=== PATIENT | female | born 1930 | race Caucasian/White ===

== ENCOUNTER → 2017-02-17 | Outpatient (CLI) | payer MEDICARE, BC ==
[~2017-02-17] VITALS: Ht 157.5 cm; Wt 83.2 kg
[~2017-02-17] MED LIST: ALBUTEROL2.5 MG/0.5 INH; ASPIR 8181 MG; COUMADIN 5 MG TA5 M1; COZAAR 50 MG TA50 M2 PO; DEXILANT60 MG; FENOFIBRATE160 MG; IBUPROFEN 200200 M1 PO; K-DUR 20 MEQ T20 MEQ; KEFLEX500 M1 PO; PERFOROMIS20 MCG/2 M INH; PROTONIX40 M1 PO; TORSEMIDE20 MG; TORSEMIDE20 MG PO; ULTRAM 50MG TAB50 MG; VIT D 2000; VITAMIN D1000 UNI1 PO; VITAMINC500 PO; XANAX 0.5 MG0.5 MG PO
[2017-02-17 11:55] VITALS: BP 143/65
[2017-02-17 12:15] VITALS: BP 147/65
--- NOTE | 2017-02-17 15:55 | 2DMMODE ---
[place] [address] 2 D/M-MODE ECHOCARDIOGRAM Name: MERARY MARQUEZ Room: [facility]#: [id number] Admission: 02/17/17 Attend Phys: Bello Morris, Discharge: Date of : 30 Date of Service: 02/17/17 1555 Report #: [id number] THIS REPORT FOR: //name// APPROVED REPORT Study performed: 02/17/2017 08:40:00 EXAM: Comprehensive 2D, Doppler, and color-flow Echocardiogram Patient Location: Out-Patient Status: routine BSA: 1.83 HR: 73 bpm BP: 151/76 mmHg Other Information Study Quality: Good Indications Congestive Heart Failure Pacemaker Cardiomyopathy 2D Dimensions LVEF(%): 71.03 (>50%) IVSd: 11.21 (7-11mm) LVOT Diam: 20.96 (18-24mm) LVDd: 50.41 mm PWd: 10.04 (7-11mm) Ascending Ao: 35.13 (22-36mm) LVDs: 29.97 (25-40mm) Aortic Root: 33.63 mm Daugherty's LVEF: 71.03 % Volumes Left Atrial Volume (Systole) LA ESV Index: 45.30 mL/m2 Aortic Valve AoV Peak Nitin.: 1.59 m/s AO Peak Gr.: 10.10 mmHg LVOT Max P.66 mmHg AO Mean Gr.: 6.07 mmHg LVOT Mean P.91 mmHg LVOT Max V: 0.64 m/s AO V2 VTI: 30.85 cm LVOT Mean V: 0.44 m/s CARYN (VTI): 1.42 cm2 LVOT V1 VTI: 12.67 [place] [address] 2 D/M-MODE ECHOCARDIOGRAM Name: MERARY MARQUEZ Room: [facility]#: [id number] Admission: 02/17/17 Attend Phys: Bello Morris, Discharge: Date of : 30 Date of Service: 02/17/17 1555 Report #: [id number] MV Decel. Time: 164.46 ms MV PHT: 47.69 ms MVA (PHT): 4.61 cm2 TDI Medial E' Nitin.: 0.09 m/s Lateral E' Nitin.: 0.06 m/s Pulmonary Valve PV Peak Nitin.: 0.81 m/s PV Peak Gr.: 2.62 mmHg Tricuspid Valve TR Peak Gr.: 34.80 mmHg RVSP: 39.00 mmHg Left Ventricle The left ventricle is normal size. There is normal LV segmental wall motion. There is normal left ventricular wall thickness. Left ventricular systolic function is normal. LVEF is 55-60%. This study is not technically sufficient to allow evaluation of the LV diastolic function due to atrial fibrillation. Right Ventricle The right ventricle is normal size. The right ventricular systolic function is normal. Pacemaker lead is present in the right ventricle. Atria Left atrium is moderately dilated. The right atrium size is normal. Aortic Valve Mild aortic valve sclerosis. Mild aortic regurgitation. Mild aortic stenosis. Mitral Valve There is mitral annular calcification. Trace mitral regurgitation. No evidence of mitral valve stenosis. Tricuspid Valve The tricuspid valve is normal in structure. Mild tricuspid regurgitation. The RVSP is 35-40 mmHg. Pulmonic Valve The pulmonary valve is normal in structure. Trace pulmonic regurgitation[place] [address] 2 D/M-MODE ECHOCARDIOGRAM Name: ALMAMERARY Danny Room: [facility]#: [id number] Admission: 02/17/17 Attend Phys: Bello Morris, Discharge: Date of : 30 Date of Service: 02/17/17 1555 Report #: [id number] The aortic root is normal in size. IVC is normal in size and collapses with >50% inspiration Pericardium There is no pericardial effusion. <Conclusion> The left ventricle is normal size. There is normal left ventricular wall thickness. Left ventricular systolic function is normal. LVEF is 55-60%. Left atrium is moderately dilated. Mild aortic valve sclerosis. Mild aortic stenosis. There is mitral annular calcification. Trace mitral regurgitation. Mild tricuspid regurgitation. The RVSP is 35-40 mmHg. <ELECTRONICALLY SIGNED> By: Bello Morris MD, FACC 02/17/17 1555 1555 1555 Bello Morris MD, FACC /INF
[2017-02-17 16:21] LABS: ABSOLUTE BASOPHILS 0.1 thou/uL (0.0-0.2); ABSOLUTE EOSINOPHILS 0.2 thou/uL (0.0-0.7); ABSOLUTE LYMPHOCYTES 1.8 thou/uL (0.8-5.3); ABSOLUTE MONOCYTES 0.4 thou/uL (0.0-1.2); ABSOLUTE NEUTROPHILS 4.2 thou/uL (1.6-8.1); BASOPHILS 1.1 %; EOSINOPHILS 2.5 %; HEMATOCRIT 44.6 % (37.0-47.0); HEMOGLOBIN 14.4 gm/dL (12.0-15.0); LYMPHOCYTES 27.1 %; MCH 29.8 pg (26.0-34.0); MCHC 32.2 g/dL (28.0-37.0); MCV 92.8 fL (80.0-100.0); MONOCYTES 6.5 %; NUCLEATED RBCS 0 /100WBC; PLATELET COUNT* 170 thou/uL (150-400); POLYS 62.8 %; RBC 4.81 mil/uL (4.20-5.00); RDW-CV 16.5 % (10.5-14.5); WBC 6.7 thou/uL (4.0-11.0)
[2017-02-17 16:31] LABS: CALCIUM 9.2 mg/dL (8.5-10.1); CREATININE 1.7 mg/dL (0.6-1.3); POTASSIUM 3.9 mmol/L (3.5-5.1)
[2017-02-17 16:32] LABS: APTT 26.6 Seconds (25.0-31.3); INR 1.1; PROTIME 10.5 Seconds (9.20-11.50)
[2017-02-17 16:35] LABS: TOTAL BILIRUBIN 0.7 mg/dL (<0.1-1.0); TOTAL PROTEIN 7.4 g/dL (6.4-8.2)
--- NOTE | 2017-02-27 12:57 | CARD ---
[address] [address] CARDIAC CATH REPORT Name: MARQUEZMERARY Room: [facility]#: [id number] Admission: 02/17/17 Attend Phys: Bello Morris MD Discharge: Date of : 30 Report #: [id number] THIS REPORT FOR: //name// APPROVED REPORT Patient Status: Out-Patient Room #: Exam: Generator Change for a Bi-Ventricular ICD Indications: Complete Heart Block The patient is a 86 year-old female with a history of Generator at [facility]. 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 The patient was brought to the cardiac catheterization lab and the left chest and shoulder were prepped and draped in the usual fashion. During this case, Fluoroscopy and visipaque 10cc were used for imaging. After an initial incision was made. The existing pulse generator was explanted using electrocautery and blunt dissection. The RV, LV, atrial and defibrillator leads were checked and deemed to be satisfactory. The new biventricular ICD generator was attached to the RV, LV, RA and defibrillator leads. 3 done the leads and generator were replaced back within the pocket. The skin incision was then closed with a single subcuticular stitch of 4-0 Vicryl. Several Steri-Strips were placed across the incision and a sterile Telfa dressing covered in a Tegaderm. Complications The patient tolerated the procedure well and there were no complications associated with the procedure. Findings Estimated Blood Loss: none Conclusion 1. Biventricular ICD [place] [address] CARDIAC CATH REPORT Name: MERARY MARQUEZ Room: [facility]#: [id number] Admission: 02/17/17 Attend Phys: Bello Morris MD Discharge: Date of : 30 Report #: [id number] 2. Successful biventricular ICD generator change as outlined above. Recommendations 1. Follow-up site check in the office in one week. 2. Follow ICD interrogation per schedule. <ELECTRONICALLY SIGNED> By: Bello Morris MD, FACC 02/27/17 1257 [id number] hospital[facility] Morris MD, FACC /INF
--- NOTE | 2017-02-28 09:08 | H ---
[place] [address] HISTORY AND PHYSICAL Name: MERARY MARQUEZ Room: [facility]#: [id number] Admission: 02/17/17 Attend Phys: Bello Morris MD Discharge: Date of : 30 Report #: [id number] THIS REPORT FOR: //name// CC: Adonay Padgett DO Cipriano Jones MD [facility] Bello Morris INDICATION FOR ADMISSION: Biventricular ICD generator change. HISTORY OF PRESENT ILLNESS: The patient is a very pleasant 86-year-old female with history of nonischemic cardiomyopathy. She is status post AICD placement for primary prevention. Her AICD generator is at elective replacement. At this time, she is without cardiac complaint. PAST MEDICAL HISTORY: 1. Paroxysmal atrial fibrillation. 2. Chronic renal insufficiency. 3. Chronic subdural hematemesis. 4. Coronary artery disease. 5. Diabetes mellitus. 6. History of cerebrovascular accident. 7. Hyperlipidemia. 8. Hypertension. 9. Nonischemic cardiomyopathy 10. Chronic systolic heart failure. PAST SURGICAL HISTORY: 1. Atrial fibrillation ablation. 2. Cardiac defibrillator placement. 3. Left arm fracture. FAMILY HISTORY: Noncontributory. SOCIAL HISTORY: The patient does not smoke. She does not drink alcohol. ALLERGIES: ALDACTONE, ALLOPURINOL, AMIODARONE, AMLODIPINE, CELEBREX, CIPROFLOXACIN, COREG, ____, DIGOXIN, FISH OIL, LISINOPRIL, METRONIDAZOLE, OMEPRAZOLE TRANDOLAPRIL, TRICOR. HOME MEDICATIONS: Vitamin C 1000 mg daily, aspirin 81 mg daily, erythromycin ointment nightly, Flonase nasal spray daily, losartan 25 mg daily, Naprosyn 220 mg 2 tablets b.i.d., Protonix 40 mg 2 times daily, Visine eyedrops as directed, ____, vitamin D3 2000 units daily. PHYSICAL EXAMINATION: VITAL SIGNS: Stable. Blood pressure 134/72, pulse 84 [place] [address] HISTORY AND PHYSICAL Name: MERARY MARQUEZ Room: [facility]#: [id number] Admission: 02/17/17 Attend Phys: Bello Morris MD Discharge: Date of : 30 Report #: [id number] GENERAL: This is a pleasant elderly female, in no distress. Mood and affect appropriate. HEENT: Extraocular muscles intact. Mucous membranes are moist. NECK: Shows no jugular venous distention. There are no carotid bruits. CHEST: Reveals clear lung beltran without wheezes or rales. CARDIOVASCULAR: Reveals a regular rhythm with normal S1 and S2. I do not appreciate gallop or murmur. ABDOMEN: Reveals normal bowel sounds. The abdomen is soft and nontender. EXTREMITIES: Shows no edema. Peripheral pulses palpable. SKIN: Warm and dry. IMPRESSION: 1. Biventricular ICD generator at elective replacement. 2. History of nonischemic cardiomyopathy with chronic systolic heart failure. PLAN: The patient is being admitted for elective replacement of biventricular ICD. <ELECTRONICALLY SIGNED> By: Bello Morris MD, FACC 02/28/17 0908 [id number] Morris MD, FACC /nt
== END | disposition home or self-care (01) ==
LOC: M.CL 08:15
PROVIDERS: Internal Medicine Cardiovascular Disease
DX: Z45.02 Encounter for adjustment and management of automatic implantable cardiac defibrillator (principal); I42.9 Cardiomyopathy, unspecified; I08.3 Combined rheumatic disorders of mitral, aortic and tricuspid valves; I44.2 Atrioventricular block, complete; I48.0 Paroxysmal atrial fibrillation; I13.0 Hypertensive heart and chronic kidney disease with heart failure and stage 1 through stage 4 chronic kidney disease, or unspecified chronic kidney disease; E11.22 Type 2 diabetes mellitus with diabetic chronic kidney disease; N18.9 Chronic kidney disease, unspecified; I50.22 Chronic systolic (congestive) heart failure; I25.10 Atherosclerotic heart disease of native coronary artery without angina pectoris; E78.5 Hyperlipidemia, unspecified; K92.0 Hematemesis; Z86.73 Personal history of transient ischemic attack (TIA), and cerebral infarction without residual deficits; Z98.890 Other specified postprocedural states; Z88.8 Allergy status to other drugs, medicaments and biological substances; Z79.899 Other long term (current) drug therapy; Z79.82 Long term (current) use of aspirin; Z90.49 Acquired absence of other specified parts of digestive tract; Z90.710 Acquired absence of both cervix and uterus